=== PATIENT | male | born 1970 | race Caucasian/White ===

== ENCOUNTER 2017-03-17 09:40 | Emergency (ER) | payer SELFPAY ==
[~2017-03-17] VITALS: Ht 185.4 cm; Wt 87.0 kg
[~2017-03-17 09:40] MED LIST: NAPR220C2 PO; PERC10TA27 PO; PRIL40CA PO; TAMS0.4C67 PO; ZOFR4TAB3 SL
[2017-03-17 09:41] VITALS: BP 159/97; PULSE 68; RESP 16; TEMP 97.8; O2SAT 97
[2017-03-17] MEDS ORDERED: PRIL20TA2 PO (10:01)
[2017-03-17] MEDS ORDERED: SODIUM CHLORIDE 0.9% FLUSH 10 ML FLUSH IVF PRN (10:15)
[2017-03-17] MEDS ORDERED: TAMSULOSIN HCL 0.4 MG CAP PO ONE (10:15)
[2017-03-17] MEDS ORDERED: MORPHINE SULFATE 4 MG/ML INJ IV PUSH ONE (10:15)
[2017-03-17] MEDS ORDERED: ONDANSETRON HCL 4 MG/2 ML VIAL IV PUSH ONE (10:15)
[2017-03-17] MEDS ORDERED: KETOROLAC TROMETHAMINE 30 MG/ML (IVP) VIAL IV PUSH ONE (10:15)
[2017-03-17] MEDS ORDERED: SODIUM CHLOR 0.9% 1000 ML INJ 1,000 ML IV ONE (10:30)
--- NOTE | 2017-03-17 10:47 | PD ---
HPI . Left flank pain Chief Complaint: Flank/Kidney Pain Time Seen by Provider: 10:08 Travel History International Travel<30 days: No Contact w/Intl Traveler<30days: No Traveled to known affect area: No History of Present Illness HPI This patient presents with the acute onset of left flank pain. He states that he had pain a couple days ago. He passed a kidney stone and then had some hematuria for a while. The pain completely resolved. The pain has recurred today. He reports some associated nausea and decreased urinary output. He is unsure of fever. This pain is sharp and he rates at 6/10. No modifying factors. Patient reports a history of previous kidney stones several years ago. This pain feels similar. PFSH Past Medical History Diminished Hearing: No GERD: Yes Hypertension: Yes Kidney Stones: Yes Musculoskeletal: Yes (CHRONIC BACK PAIN) Past Surgical History Genitourinary Surgery: Yes (VASECTOMY) Other Surgery: Yes (BIOPSY LEFT ARM/CHILD "STUDY TEST") Social History Alcohol Use: Yes ([facility]) Tobacco Use: No (QUIT 1999) Substance Use: No Allergies-Medications (Allergen,Severity, Reaction): Coded Allergies: penicillin G (Unverified Allergy, Severe, HIVES, 03/17/17) Reported Meds & Prescriptions Reported Meds & Active Scripts Active Flomax (Tamsulosin HCl) 0.4 Mg Cap 0.4 Mg PO HS Phenergan (Promethazine HCl) 25 Mg Tablet 25 Mg PO Q6H PRN Percocet (Oxycodone-Acetaminophen) 5-325 mg Tab 1 Tab PO Q4H PRN Reported Prilosec (Omeprazole Magnesium) 20 Mg Tab 20 Mg PO DAILY Review of Systems Except as stated in HPI: all other systems reviewed are Neg General / Constitutional: Positive: Fever (possible fever) Gastrointestinal: Positive: Nausea Genitourinary: Positive: Decreased Urinary Output, Flank Pain Physical Exam Narrative GENERAL: Patient is awake and alert and in no acute distress. SKIN: warm/dry. HEAD: Normocephalic. Atraumatic. EYES: Pupils equal and round. No scleral icterus. No injection or drainage. ENT: No nasal bleeding or discharge. Mucous membranes pink and moist. NECK: Trachea midline. Full range of motion without pain.. CARDIOVASCULAR: Regular rate and rhythm. RESPIRATORY: No accessory muscle use. Clear to auscultation. Breath sounds equal bilaterally. GASTROINTESTINAL: Abdomen soft. Nontender. Bowel sounds present. Nondistended. Minimal left CVA tenderness. MUSCULOSKELETAL: No obvious deformities. NEUROLOGICAL: Awake and alert. No obvious cranial nerve deficits. Motor grossly within normal limits. Normal speech. PSYCHIATRIC: Appropriate mood and affect; insight and judgment normal. Data Data Last Documented VS Vital Signs Date Time Temp Pulse Resp B/P (MAP) Pulse Ox O2 Delivery O2 Flow Rate FiO2 03/17/17 11:24 17 03/17/17 09:41 97.8 68 159/97 (117) 97 Room Air Orders Orders Iv Access Insert/Monitor (03/17/17 10:08) Sodium Chloride 0.9% Flush (Ns Flush) (03/17/17 10:15) Morphine Inj (Morphine Inj) (03/17/17 10:15) Ondansetron Inj (Zofran Inj) (03/17/17 10:15) Ketorolac Inj (Toradol Inj) (03/17/17 10:15) Tamsulosin (Flomax) (03/17/17 10:15) Ct Abd/Pel W/O Iv Contrast (03/17/17 10:16) Sodium Chlor 0.9% 1000 Ml Inj (Ns 1000 M (03/17/17 10:30) Urinalysis - C+S If Indicated (03/17/17 10:47) Hydromorphone Pf Inj (Dilaudid Pf Inj) (03/17/17 11:30) Ed Discharge Order (03/17/17 12:53) Labs Laboratory Tests Test 03/17/17 10:30 Urine Color YELLOW Urine Turbidity CLEAR Urine pH 5.5 Urine Specific [place] 1.025 Urine Protein TRACE mg/dL Urine Glucose (UA) NEG mg/dL Urine Ketones NEG mg/dL Urine Occult Blood MOD Urine Nitrite NEG Urine Bilirubin NEG Urine Urobilinogen 2.0 MG/DL Urine Leukocyte Esterase NEG Urine RBC 41 /hpf Urine WBC 2 /hpf Urine Mucus MOD /lpf Microscopic Urinalysis Comment CULT NOT INDICATED MDM Medical Decision Making Medical Screen Exam Complete: Yes Emergency Medical Condition: Yes Differential Diagnosis Differential diagnosis of flank pain includes but is not limited to kidney stone , pyelonephritis, musculoskeletal pain, PE Narrative Course This patient presents with left flank pain. It is most likely kidney stone. I have ordered IV Zofran, IV pink, IV Toradol and oral Flomax. CT scan and UA are pending. Last Impressions Abdomen/Pelvis CT 03/17/17 1016 Signed Impressions: Service Date/Time: Friday, March 17, 2017 10:29 - CONCLUSION: 3 mm left ureterovesical junction calculus causing mild obstructive uropathy. I don't clearly see the stone on the initial rehabilitation services aide radiograph. Otherwise negative noncontrast CT of the abdomen and pelvis. Raulito Roy MD UA>>41 RBCs. No evidence of infection. The patient still had pain following the initial treatment. He was then given Dilaudid. He is now resting comfortably and is ready to go home. Diagnosis Primary Impression: Kidney stone on left side Referrals: Antonio Bro MD Patient Instructions: General Instructions, Kidney Stones (DC) Med/Other Pt SpecificInfo: Prescription(s) given Scripts Tamsulosin (Flomax) 0.4 Mg Cap 0.4 MG PO HS for Manage Prostate Problems, #30 CAP 0 Refills Prov: Renuka Alejandra MD 03/17/17 Promethazine (Phenergan) 25 Mg Tablet 25 MG PO Q6H Y for NAUSEA OR VOMITING, #12 TAB 0 Refills Prov: Renuka Alejandra MD 03/17/17 Oxycodone-Acetaminophen (Percocet) 5-325 mg Tab 1 TAB PO Q4H Y for PAIN, #12 TAB 0 Refills Prov: Renuka Alejandra MD 03/17/17 Disposition: 01 DISCHARGE HOME Condition: Stable Renuka Alejandra MD Mar 17, 2017 10:47
--- NOTE | 2017-03-17 11:04 | RADRPT ---
EXAM DATE/TIME: 03/17/2017 10:29 [facility] COMPARISON: CT ABDOMEN & PELVIS W/O CONTRAST, December 16, 2013, 13:25. INDICATIONS : Left falnk pain, history of renal stones ORAL CONTRAST: No oral contrast ingested. RADIATION DOSE: 14.215 CTDIvol (mGy) MEDICAL HISTORY : Hypertension. Renal calculi. SURGICAL HISTORY : Vasectomy ENCOUNTER: Initial ACUITY: 1 day PAIN SCALE: 6/10 LOCATION: Left flank TECHNIQUE: Volumetric scanning of the abdomen and pelvis was performed. Using automated exposure control and ad justment of the mA and/or kV according to patient size, radiation dose was kept as low as reasonably achievable to obtain optimal diagnostic quality images. DICOM format image data is available electro nically for review and comparison. FINDINGS: LOWER LUNGS: The visualized lower lungs are clear. LIVER: Homogeneous density without lesion. There is no dilation of the biliary tree. No calcified gallston es. SPLEEN: Normal size without lesion. PANCREAS: Within normal limits. KIDNEYS: There is a 3 mm stone of the left ureterovesical junction causing mild hydronephrosis and hydroureter . Right kidney is normal. Previously seen stone of the right UVJ is no longer present. ADRENAL GLANDS: Within normal limits. VASCULAR: There is no aortic aneurysm. BOWEL/MESENTERY: The stomach, small bowel, and colon demonstrate no acute abnormality. There is no free intraperitone al air or fluid. ABDOMINAL WALL: Within normal limits. RETROPERITONEUM: There is no lymphadenopathy. BLADDER: No wall thickening or mass. REPRODUCTIVE: Within normal limits. INGUINAL: There is no lymphadenopathy or hernia. MUSCULOSKELETAL: Within normal limits for patient age. CONCLUSION: 3 mm left ureterovesical junction calculus causing mild obstructive uropathy. I don't clearly see the stone on the initial senior engineering associate radiograph. Otherwise negative noncontrast CT of the abdomen and pelvis. Raulito Roy MD on March 17, 2017 at 11:00 Board Certified Radiologist. This report was verified electronically.
[2017-03-17 11:14] LABS: BILIRUBIN, URINE NEG (NEG); BLOOD, URINE MOD (NEG); GLUCOSE,URINE NEG (NEG); KETONE, URINE NEG (NEG); MUCUS URINE MOD /lpf (OCC); NITRITE,URINE NEG (NEG); PH, URINE 5.5 (5.0-8.5); URINE COLOR YELLOW (YELLW/STRAW); URINE LEUKOCYTE ESTERASE NEG (NEG)
[2017-03-17] MEDS ORDERED: HYDROmorphone HCL PF 2 MG/ML VIAL IV PUSH ONE (11:30)
[2017-03-17] MEDS ORDERED: PERC5TAB12 PO (11:31)
[2017-03-17] MEDS ORDERED: PROM25TA10 PO (11:31)
[2017-03-17] MEDS ORDERED: TAMS5CAP PO (11:31)
[2017-03-17 13:00] VITALS: BP 140/82; PULSE 62; RESP 16; O2SAT 97
== END 2017-03-17 13:12 | disposition home or self-care (01) ==
LOC: NEPD 09:40
DX: N20.0 Calculus of kidney (principal); R11.0 Nausea; I10 Essential (primary) hypertension; K21.9 Gastro-esophageal reflux disease without esophagitis; Z79.899 Other long term (current) drug therapy; Z88.0 Allergy status to penicillin; Z87.891 Personal history of nicotine dependence; Z87.442 Personal history of urinary calculi
CPT/HCPCS: 74176; 81001; 96361; 96374; 96375; 99285; J1170; J1885; J2270; J2405; J7030